=== PATIENT | male | born 1990 | race African-American/Black ===

== ENCOUNTER 2017-09-12 22:56 | Emergency (ER) | payer SELFPAY ==
[2017-09-12 23:38] LABS: BILIRUBIN,URINE NEGATIVE (NEG); CLARITY,URINE CLOUDY; COLOR,URINE YELLOW; GLUCOSE,URINE NEGATIVE (NEG); NITRITE,URINE NEGATIVE (NEG); PROTEIN,URINE NEGATIVE (NEG-TRACE)
[2017-09-12 23:45] LABS: BACTERIA,URINE MANY /HPF (0-FEW); WBC,URINE >40 /HPF (0-4)
[2017-09-12] MEDS: metroNIDAZOLE 500 MG TABLET PO (23:53)
[2017-09-12] MEDS: AZITHROMYCIN 250 MG TABLET. PO (23:53)
[2017-09-12] MEDS: cefTRIAXone IM 250 MG VIAL IM (23:54)
== END 2017-09-13 00:10 | disposition home or self-care (01) ==
LOC: ER 09-13 00:10
DX: Z20.2 Contact with and (suspected) exposure to infections with a predominantly sexual mode of transmission (principal)
CPT/HCPCS: 81001; 87086; 87491; 87591; 96372; 99284; J0696; Q0144